=== PATIENT | male | born 1975 | race Caucasian/White ===

== ENCOUNTER 2018-07-12 09:02 | Emergency (ER) | payer OTHER ==
[~2018-07-12] VITALS: Ht 175.3 cm; Wt 108.9 kg
[2018-07-12] MEDS ORDERED: NEURONTIN600 MG PO (09:19)
[2018-07-12] MEDS ORDERED: PRINIVIL20 MG PO ×2 (09:19→09:52)
[2018-07-12] MEDS ORDERED: GABAPENTIN800 M1 PO (09:52)
[2018-07-12 09:57] VITALS: BP 151/98
== END 2018-07-12 09:58 | disposition home or self-care (01) ==
LOC: M.ERS 09:02
DX: I10 Essential (primary) hypertension (principal); Z76.0 Encounter for issue of repeat prescription; G62.9 Polyneuropathy, unspecified